=== PATIENT | male | born 1955 | race Caucasian/White ===

== ENCOUNTER 2020-12-18 14:23 | Inpatient (IN) | payer MEDICARE, OTHER ==
[~2020-12-18] VITALS: Ht 175.3 cm; Wt 94.3 kg
[2020-12-18 15:17] LABS: VENOUS BASE EXCESS -15.8 (-2.0-2.0); VENOUS HCO3 9.9 MEQ/L (23.0-27.0); VENOUS O2 SATURATION 88.6 % (60.0-80.0); VENOUS PARTIAL PRESSURE CO2 24.7 mmHg (38.0-50.0); VENOUS PARTIAL PRESSURE O2 61.8 mmHg (30.0-50.0); VENOUS PH 7.222 UNITS (7.330-7.430); VENOUS STANDARD HCO3 12.6 MEQ/L; VENOUS TOTAL CO2 10.7 MEQ/L (24.0-28.0)
[2020-12-18 15:18] LABS: HEMATOCRIT 44.4 % (42.0-52.0); HEMOGLOBIN 14.9 g/dl (13.5-17.5); MEAN CORPUSCULAR HEMOGLOBIN 32.3 pg (27.0-33.0); MEAN CORPUSCULAR HGB CONC 33.6 g/dl (32.0-36.5); MEAN CORPUSCULAR VOLUME 96.1 fl (80.0-96.0); PLATELET COUNT, AUTOMATED 212 10^3/uL (150-450); RED BLOOD COUNT 4.62 10^6/uL (4.30-6.10)
[2020-12-18 15:47] LABS: HEMOGLOBIN A1c 13.3 %
[2020-12-18 15:48] LABS: WHITE BLOOD COUNT 16.3 10^3/uL (4.0-10.0)
[2020-12-18 15:55] LABS: LYMPHOCYTES 4 % (16-44); METAMYELOCYTES 1 % (0-0); MYELOCYTES 1 % (0-0)
[2020-12-18 15:56] LABS: MONOCYTES 7 % (0-5); NEUTROPHILS 56 % (28-66); PLATELET ESTIMATE NORMAL (NORMAL)
[2020-12-18] MEDS ORDERED: HumuLIN R (REGULAR) INSULIN (NovoLIN R) **100U/ML** PER UNIT IV ONE ×2 (16:00→17:40)
[2020-12-18 16:40] LABS: OSMOLALITY SERUM 333 MOSM/KG (280-301)
--- NOTE | 2020-12-18 16:54 | REP ---
INDICATION: fall COMPARISON: None. TECHNIQUE: Portable AP view of the chest FINDINGS: Examination is limited by portable technique, underpenetration, and poor inspiratory effort. Chronic changes are suggested and trace basilar atelectasis cannot be excluded. No discrete consolidation/contusion, effusion, or pneumothorax. Cardiac silhouette is grossly normal for portable technique. Skeletal structures appear intact. IMPRESSION: Limited portable examination. Presumed chronic changes. Cannot exclude trace basilar atelectasis. <Electronically signed by Thaddeus Olsen > 12/18/20 [id number]
[2020-12-18] MEDS ORDERED: NS 1,000 ML IV ONE ×2 (17:15→18:25)
[2020-12-18 17:23] LABS: ACETONE/KETONE > 46.00 MG/DL (<2.81); ALBUMIN 2.5 GM/DL (3.2-5.2); ALT/SGPT 25 U/L (12-78); BILIRUBIN,DIRECT 0.2 MG/DL (0.0-0.2); BILIRUBIN,TOTAL 0.5 MG/DL (0.2-1.0); BLOOD UREA NITROGEN 72 MG/DL (7-18); CALCIUM LEVEL 9.9 MG/DL (8.8-10.2); CARBON DIOXIDE LEVEL 12 MEQ/L (21-32); CHLORIDE LEVEL 87 MEQ/L (98-107); CREATININE FOR GFR 3.58 MG/DL (0.70-1.30); GLOMERULAR FILTRATION RATE 18.2 (>49); GLUCOSE, FASTING 611 MG/DL (70-100); LIPASE 3610 U/L (73-393); SODIUM LEVEL 123 MEQ/L (136-145); TOTAL PROTEIN 7.3 GM/DL (6.4-8.2)
--- NOTE | 2020-12-18 17:47 | REPVR ---
PROCEDURE INFORMATION: Exam: CT Head Without Contrast Exam date and time: 12/18/2020 5:02 PM Age: 65 years old Clinical indication: Injury or trauma; Fall; Blunt trauma (contusions or hematomas) TECHNIQUE: Imaging protocol: Computed tomography of the head without contrast. Radiation optimization: All CT scans at this facility use at least one of these dose optimization techniques: automated exposure control; mA and/or kV adjustment per patient size (includes targeted exams where dose is matched to clinical indication); or iterative reconstruction. COMPARISON: No relevant prior studies available. FINDINGS: Brain: No acute intracranial hemorrhage is visualized. The white-giraldo differentiation is preserved demonstrating no acute territorial type infarct. There is no midline shift. A preston cisterna magna variant is visualized. Mild cerebellar atrophy. Artifact limits evaluation of the catrachita. Cerebral ventricles: There is mild prominence of the ventricles and sulci, compatible with atrophy. Paranasal sinuses: Mucosal thickening of the right sphenoid sinus. Mastoid air cells: No mastoid effusion. Orbital cavity: Bilateral orbital lens implants. Vasculature: Intracranial atherosclerosis visualized. Bones/joints: The parietal skull extends out of the field of view of this study of the vertex of the head. The remaining skull is intact. Soft tissues: The scalp at the anterior vertex of the head extends out of the field of view of this study. No significant swelling involving the remaining scalp. IMPRESSION: 1. No acute intracranial hemorrhage or acute territorial type infarct. 2. Mild atrophy. 3. Additional findings described above. Electronically signed by: Adi Carvalho On 12/18/2020 17:46:45 PM
--- NOTE | 2020-12-18 17:53 | REPVR ---
PROCEDURE INFORMATION: Exam: CT Cervical Spine Without Contrast Exam date and time: 12/18/2020 5:02 PM Age: 65 years old Clinical indication: Injury or trauma; Fall; Blunt trauma TECHNIQUE: Imaging protocol: Computed tomography images of the cervical spine without contrast. Radiation optimization: All CT scans at this facility use at least one of these dose optimization techniques: automated exposure control; mA and/or kV adjustment per patient size (includes targeted exams where dose is matched to clinical indication); or iterative reconstruction. COMPARISON: CR Chest, 1 view 12/18/2020 4:32 PM FINDINGS: Bones/joints: Motion artifact limits evaluation of the cervical spine for fracture. No abnormal subluxation of the cervical vertebral bodies. The facet alignment is preserved bilaterally. The cervical lordosis is straightened. Hypertrophic degenerative changes are identified at the junction of the anterior C1 arch and dens process. Hyperostosis is identified anteriorly at the level of the mid to lower cervical spine. Discs/Spinal canal/Neural foramina: Degenerative changes are visualized at multiple cervical levels. Facet arthropathy is identified at multiple cervical levels. There is a decrease in disc height from C4-C5 through C6-C7. Lungs: No pneumothorax, as visualized. Vasculature: Atherosclerotic changes. Soft tissues: No significant prevertebral soft tissue swelling. IMPRESSION: 1. Motion artifact limits evaluation of the cervical spine for fracture. A repeat cervical spine CT is recommended. 2. The cervical lordosis is straightened. 3. Degenerative changes are visualized at multiple cervical levels. Electronically signed by: Adi Carvalho On 12/18/2020 17:52:59 PM
--- NOTE | 2020-12-18 17:58 | REPVR ---
PROCEDURE INFORMATION: Exam: CT Abdomen And Pelvis Without Contrast Exam date and time: 12/18/2020 5:02 PM Age: 65 years old Clinical indication: Injury or trauma; Fall; Blunt; Generalized TECHNIQUE: Imaging protocol: Computed tomography of the abdomen and pelvis without contrast. Radiation optimization: All CT scans at this facility use at least one of these dose optimization techniques: automated exposure control; mA and/or kV adjustment per patient size (includes targeted exams where dose is matched to clinical indication); or iterative reconstruction. COMPARISON: CR Chest, 1 view 12/18/2020 4:32 PM FINDINGS: Lungs: A lateral 18.5 x 7.9 mm noncalcified pulmonary nodule is noted in the lateral basilar segment of the right lower lobe (LOC -117.82). Liver: Normal. No mass. Gallbladder and bile ducts: Normal. No calcified stones. No ductal dilation. Pancreas: Severe pancreatic atrophy. Spleen: Normal. No splenomegaly. Adrenal glands: Normal. No mass. Kidneys and ureters: Right renal 12.2 mm probable benign cyst. Stomach and bowel: Unremarkable. No obstruction. No mucosal thickening. Appendix: No evidence of appendicitis. Intraperitoneal space: Unremarkable. No free air. No significant fluid collection. Vasculature: Moderate aortic atherosclerotic calcification without aneurysm. The iliac arteries show moderate bilateral atherosclerotic calcifications without evidence of aneurysm. Atherosclerotic calcifications are present involving the LAD coronary artery. Lymph nodes: No enlarged lymph nodes. Urinary bladder: Unremarkable as visualized. Reproductive: Unremarkable as visualized. Bones/joints: No pelvic or sacral fracture identified. No acute lumbar spine fracture identified. T10-11 disc calcification without displacement. Soft tissues: Unremarkable. Other findings: Streak artifact is present from the patient's arms at the side. IMPRESSION: 1. Lack of IV contrast reduces sensitivity to abdominal solid visceral organ traumatic injury. IV contrast enhanced imaging may add additional useful information if not contraindicated. 2. No acute injury identified, as visualized. 3. Right renal probable benign cyst. No follow-up imaging is recommended. 4. Noncalcified right lower lobe pulmonary nodule. Pulmonary neoplasia not excluded. Comparison with prior studies, if available, recommended. Three-month followup chest CT, PET/CT, or percutaneous needle biopsy recommended. (Babita et al., Fleischner Society, 2017). 5. Coronary atherosclerosis. COMMENTS: Consistent with the [employer]'s Incidental Findings Committee white paper (J Am Luis Radiol 2018): Any incidental renal lesion less than 1 cm or classified as too small to characterize, or any incidental cystic renal lesion characterized as simple-appearing, is likely benign. No follow-up imaging is recommended for these lesions per consensus recommendations based on imaging criteria. Electronically signed by: Dexter Baca On 12/18/2020 17:58:38 PM
[2020-12-18 18:36] LABS: RSV AMPLIFICATION NEGATIVE (NEGATIVE)
[2020-12-18] MEDS ORDERED: LORazepam 2 MG TAB PO PRN (18:40)
[2020-12-18] MEDS ORDERED: KCL 20MEQ in NS 1000ML 1,000 ML IV SCH (18:50)
[2020-12-18 19:12] LABS: TROPONIN I < 0.02 NG/ML (< 0.10)
--- NOTE | 2020-12-18 19:24 | ECGEPIP ---
[facility] - ED Test Date: 2020-12-18 Pat Name: ADRIAN US Department: Room: - Gender: Male Microbiological Laboratory Technician: YELITZA : 1955 Requested By: MAR Taylor Order Number: [id number] Reading MD: Zahra Solis Measurements Intervals [place] Rate: 101 P: 42 ME: 160 QRS: 37 QRSD: 82 T: 58 QT: 312 QTc: 404 Interpretive Statements Sinus tachycardia Possible Left atrial enlargement Anterior infarct , age undetermined Nonspecific ST T wave changes No prior ECG for comparison Electronically Signed on 12-18-2020 19:23:44 EDT by Zahra Solis
[2020-12-18] MEDS: INSULIN REGULAR IN 0.9 % NACL 100 UNIT in IV 1 EA IV SCH ×2 (19:25)
[2020-12-18 19:33] LABS: CALCIUM LEVEL 9.9 MG/DL (8.8-10.2); CREATININE FOR GFR 3.56 MG/DL (0.70-1.30); GLOMERULAR FILTRATION RATE 18.3 (>49); POTASSIUM SERUM 4.2 MEQ/L (3.5-5.1)
[2020-12-18 19:35] LABS: CHOLESTEROL RISK RATIO 7.5 (<5)
--- NOTE | 2020-12-18 19:36 | HPEPDOC ---
General Date of Admission Dec 18, 2020 at 18:21 Date of Service: Dec 18, 2020 Chief Complaint The patient is a 65-year-old male admitted with a reason for visit of Acute Renal Failure, Dka Type 2, Pancreatitis. Source: Patient, Family History of Present Illness Mr. Moore is a 65 year old male with DM type 2, hypertension, and hyperlipidemia who is here for weakness and abdominal pain. He ran out of his medications about 2 months ago and did not want to call his primary to refill his medications. He tells me he was afraid of the COVID19. He is from [place] and is currently visiting family here. In the past 6 days, he has been acting more confused and have been having multiple falls. Whenever he falls, his picks him up. This morning, he fell and his could not pick him up. He was brought to the ED. When in the ED, he was found to have DKA with ketones >46, venous pH 7.22, and glucose of 611 with a gap of 24. In addition, he was found to have pancreatitis with a lipase of 3610. was present in the room and provided most of this history. Patient denies any fever/chills, chest pain, dyspnea, or diarrhea. Patient does have nausea, anorexia, and abdominal pain with tenderness. Patient will be admitted for DKA, pancreatitis, GINA, and metabolic encephalopathy. Home Medications No Active Prescriptions or Reported Meds Allergies Coded Allergies: [place] Nut (Verified Allergy, Unknown, THROAT TIGHTENING, 12/18/20) shrimp (Verified Allergy, Unknown, HIVES, 12/18/20) Past Medical History Medical History 1. DM type 2 2. Hypertension 3. Hyperlipidemia 4. Tick bite (Not lyme but a different tick borne disease) Surgical History 1. Finger surgery 2. Arm surgery (known which arm or what procedure) Family History Father: ALS and Brain cancer Mother: Heart disease Social History * Smoker: former Smoker (Quit 6 years ago) Alcohol: other (2 to 3 beers a night) Drugs: denies A-FIB/CHADSVASC A-FIB History Current/History of A-Fib/PAF?: No Review of Systems Constitutional: Denies: Chills, Fever Eyes: Denies: Vision change ENT: Reports: Other Symptoms (Dry throat) Skin: Denies: Rash Pulmonary: Denies: Dyspnea Cardiovascular: Denies: Chest Pain Gastrointestinal: Reports: Abdominal Pain, Constipation Genitourinary: Denies: Dysuria Hematologic: Reports: Bruising Neurological: Denies: Numbness Psych: Denies: Anxiety, Depression Physical Examination General Exam: Positive: Mild Distress Eye Exam: Positive: EOMI; Negative: Sclera icteric ENT Exam: Positive: Other ENT (Dry mouth) Neck Exam: Negative: JVD Chest Exam: Positive: Clear to auscultation; Negative: Rales, Rhonchi, Wheezing Heart Exam: Positive: Tachycardic, Regular Rhythm Abdomen Exam: Positive: Normal bowel sounds, Tenderness Extremity Exam: Negative: Edema Psych Exam: Positive: Other (confused) Vital Signs Vital Signs Date Time Temp Pulse Resp B/P (MAP) Pulse Ox O2 Delivery O2 Flow Rate FiO2 12/18/20 16:31 104 29 115/58 (77) Room Air 12/18/20 16:26 99.4 12/18/20 14:45 95 Laboratory Data Labs 24H Laboratory Tests 2 12/18/20 14:51: Neutrophils (%) (Auto) , Nucleated Red Blood Cells % (auto) 0.0, Neutrophils 56, Band Neutrophils 31H, Lymphocytes (Manual) 4L, Monocytes (Manual) 7H, Metamyelocytes 1H, Myelocytes 1H, Platelet Estimate NORMAL, Blood Gas Bicarbonate Standard 12.6, Venous Blood pH 7.222L, Venous Blood Partial Pressure CO2 24.7L, Venous Blood Partial Pressure O2 61.8H, Venous Blood Total Carbon Dioxide 10.7L, Venous Blood HCO3 9.9L, Venous Blood Oxygen Saturation 88.6H, Venous Blood Base Excess -15.8L, Estimated Mean Plasma Glucose 335H, Hemoglobin A1c 13.3, Lactic Acid Level 1.7 12/18/20 15:42: Bedside Glucose (Misc Panel) 572*H 12/18/20 16:04: Anion Gap 24H, Glomerular Filtration Rate 18.2L, Osmolality 333H, Calcium Level 9.9, Total Bilirubin 0.5, Direct Bilirubin 0.2, Aspartate Amino Transf (AST/SGOT) 23, Alanine Aminotransferase (ALT/SGPT) 25, Alkaline Phosphatase 136H, C-Reactive Protein, Quantitative 34.50H, Total Protein 7.3, Albumin 2.5L, Albumin/Globulin Ratio 0.5, Lipase 3610H, B-Hydroxybutyrate > 46.00H 12/18/20 17:37: Coronavirus (COVID-19)(PCR) NEGATIVE, Influenza Type A (RT-PCR) NEGATIVE, Influenza Type B (RT-PCR) NEGATIVE, Respiratory Syncytial Virus (PCR) NEGATIVE 12/18/20 18:03: Bedside Glucose (Misc Panel) 509*H 12/18/20 18:50: CBC/BMP Laboratory Tests 12/18/20 14:51 12/18/20 16:04 Microbiology Microbiology 12/18/20 Blood Culture, Received Pending 12/18/20 Blood Culture, Received Pending Assessment/Plan Mr. Moore is a 65 year old male with DM type 2, hypertension, and hyperlipidemi a who is here for weakness and abdominal pain and found to have DKA, pancreatitis, GINA, and metabolic encephalopathy. DKA most likely from medication non-compliance. Patient does drink alcohol which may have caused pancreatitis. Will check lipid profile for hypertriglyceridemia as a cause of pancreatitis. CT abd/pelvis did not demonstrate gallstones and AST and ALT within normal. Plan / VTE VTE Prophylaxis Ordered?: Yes Plan Plan 1. DKA -Ketones >46, venous pH 7.22, and glucose of 611 with a gap of 24 -NPO -IVF with potassium -Insulin drip -Frequent BMP checks and q1h FSBS 2. Pancreatitis -Lipase 3610 -Abdominal pain and tenderness -Check lipid panel for hypertriglyceridemia -NPO and IVF 3. Acute renal failure -Creatinine elevated at 3.58 -Patient is dehydrated. Most likely prerenal -IVF 4. Leukocytosis -Possibly reactive vs infection -CXR negative for pneumonia -Ordered for UA -Meropenem empirically 5. Metabolic encephalopathy -Patient is confused, most likely from DKA -Patient does drink alcohol. CIWA ordered -IV Thiamine 6. DVT ppx -SCD and TEDs Disposition: Pending clinical improvement JARVIS RICE DO Dec 18, 2020 19:36
[2020-12-18] MEDS: INSULIN IV RATE CHANGE DOCUMENTATION ML/HR XX SCH ×5 (20:06→23:04)
[2020-12-18] MEDS: MEROPENEM INJ 1 GM in IV 1 EA IV SCH (20:08)
[2020-12-18 20:54] LABS: CALCIUM LEVEL 9.9 MG/DL (8.8-10.2); CREATININE FOR GFR 3.53 MG/DL (0.70-1.30); GLOMERULAR FILTRATION RATE 18.5 (>49); POTASSIUM SERUM 3.9 MEQ/L (3.5-5.1)
[2020-12-18 21:00] VITALS: BP 143/67
[2020-12-18] MEDS: FOLIC ACID 1 MG in NS 50 ML IV SCH (21:15)
[2020-12-18] MEDS: THIAMINE 200MG/2ML VIAL (J3411 PER 100MG) IV SCH (21:51)
[2020-12-18 22:00] VITALS: BP 133/84
[2020-12-19] VITALS (33 sets, daily range): BP systolic 84–137; BP diastolic 45–78
[2020-12-19] MEDS: KCL 20MEQ IN D5/0.45NS 1000ML 1,000 ML IV SCH ×7 (00:06→20:17)
[2020-12-19] MEDS: INSULIN IV RATE CHANGE DOCUMENTATION ML/HR XX SCH ×10 (01:05→19:09)
[2020-12-19 03:01] LABS: CALCIUM LEVEL 9.1 MG/DL (8.8-10.2); CREATININE FOR GFR 3.23 MG/DL (0.70-1.30); GLOMERULAR FILTRATION RATE 20.5 (>49); POTASSIUM SERUM 4.3 MEQ/L (3.5-5.1)
[2020-12-19] MEDS ORDERED: MORPHINE 4 MG/ML 1ML VIAL/SYRINGE (J2270) IV ONE (03:35)
[2020-12-19] MEDS: HYDROMORPHONE HCL 0.5 MG/ 0.5 ML SYRINGE (J1170 PER 1) IV PRN ×3 (04:59→22:48)
[2020-12-19 06:37] LABS: HEMATOCRIT 36.3 % (42.0-52.0); MEAN CORPUSCULAR HEMOGLOBIN 32.6 pg (27.0-33.0); MEAN CORPUSCULAR HGB CONC 34.4 g/dl (32.0-36.5); MEAN CORPUSCULAR VOLUME 94.5 fl (80.0-96.0); PLATELET COUNT, AUTOMATED 179 10^3/uL (150-450); RED BLOOD COUNT 3.84 10^6/uL (4.30-6.10); WHITE BLOOD COUNT 9.8 10^3/uL (4.0-10.0)
[2020-12-19 06:43] LABS: HEMOGLOBIN 12.5 g/dl (13.5-17.5)
[2020-12-19 06:59] LABS: CREATININE FOR GFR 3.41 MG/DL (0.70-1.30); GLOMERULAR FILTRATION RATE 19.3 (>49); POTASSIUM SERUM 4.3 MEQ/L (3.5-5.1)
[2020-12-19] MEDS: MEROPENEM INJ 1 GM in IV 1 EA IV SCH ×2 (08:21→20:15)
[2020-12-19] MEDS: INSULIN REGULAR IN 0.9 % NACL 100 UNIT in IV 1 EA IV SCH ×4 (08:27→22:50)
[2020-12-19 08:47] LABS: ABG BASE EXCESS -5.3 (-2.0-2.0); ABG HCO3 19.2 MEQ/L (22.0-26.0); ABG O2 SATURATION 95.4 % (95.0-99.0); ABG PARTIAL PRESSURE CO2 34.3 mmHg (35.0-45.0); ABG PARTIAL PRESSURE O2 78.7 mmHg (75.0-100.0); ABG STANDARD HCO3 20.1 MEQ/L (22.0-26.0); ABG TOTAL CO2 20.3 MEQ/L (23.0-31.0); ABG pH (ARTERIAL) 7.366 UNITS (7.350-7.450)
[2020-12-19] MEDS ORDERED: VANCOMYCIN INTERMITTENT/PULSE DOSING BY CLINICAL PHARMACIST PER DOSING PROTOCOL XX SCH (09:20)
[2020-12-19 09:43] LABS: CALCIUM LEVEL 8.9 MG/DL (8.8-10.2); CREATININE FOR GFR 3.44 MG/DL (0.70-1.30); GLOMERULAR FILTRATION RATE 19.1 (>49); POTASSIUM SERUM 4.5 MEQ/L (3.5-5.1)
[2020-12-19] MEDS ORDERED: VANCOMYCIN HCL 1,000 MG, VIAL MATE ADAPTER 1 EACH in NS 250 ML IV ONE ×2 (10:00→13:00)
[2020-12-19] MEDS ORDERED: IPRATROPIUM 0.5MG/ALBUTEROL 2.5MG INH SOL UD 3ML (DUONEB) NEB PRN (10:55)
--- NOTE | 2020-12-19 12:35 | REP ---
INDICATION: AMS COMPARISON: 12/18/2020 TECHNIQUE: Axial noncontrast images from the skull base to the thoracic inlet with coronal reformations. This CT examination was performed using the following dose reduction techniques: Automated exposure control, adjustment of mA and/or kv according to the patient's size, and use of iterative reconstruction technique. FINDINGS: Atrophy with periventricular leukomalacia and microvascular ischemic changes are appreciated. The ventricles and sulci are symmetric. Lockhart-white differentiation is maintained. There is no evidence for acute intracranial hemorrhage, mass/mass effect, pathology or infarction. No extra-axial fluid collection. Calvarium is intact. Paranasal sinuses and mastoid air cells are clear. IMPRESSION: Stable age-related changes. No acute intracranial hemorrhage, infarction, or mass/mass effect. <Electronically signed by Thaddeus Olsen > 12/19/20 [id number]
--- NOTE | 2020-12-19 17:11 | IPNPDOC ---
Subjective Date Seen The patient was seen on 12/19/20. Subjective Chief Complaint/HPI Mr. Moore is a 65 year old male with DM type 2, hypertension, and hyperlipidemia who is here for weakness and abdominal pain and found to have DKA and acute pancreatitis. Overnight, he became more somnolent, but responsive to pain. Otherwise, blood cultures x2 returned positive for gram positive cocci in clusters. Patient was started on Vancomycin. MRSA swab positive. Nurse notified me about erythema of patient's right ARM. Last night, it was outlined and now has receded down to the right elbow. Right elbow erythematous and warm. Will order soft tissue imaging of right elbow Objective Physical Examination General Exam: Positive: Mild Distress Eye Exam: Positive: EOMI; Negative: Sclera icteric ENT Exam: Positive: Other ENT (Dry mouth) Neck Exam: Negative: JVD Chest Exam: Positive: Clear to auscultation; Negative: Rales, Rhonchi, Wheezing Heart Exam: Positive: Tachycardic, Regular Rhythm Abdomen Exam: Positive: Normal bowel sounds, Tenderness Extremity Exam: Negative: Edema Psych Exam: Positive: Other (confused) Assessment /Plan Assessment Mr. Moore is a 65 year old male with DM type 2, hypertension, and hyperlipidemia who is here for weakness and abdominal pain and found to have DKA, pancreatitis, GINA, and metabolic encephalopathy. DKA most likely from medication non-compliance. Patient does drink alcohol which may have caused pancreatitis. Will check lipid profile for hypertriglyceridemia as a cause of pancreatitis. CT abd/pelvis did not demonstrate gallstones and AST and ALT within normal. Plan/VTE VTE Prophylaxis Ordered?: Yes Plan 1. DKA -Ketones >46, venous pH 7.22, and glucose of 611 with a gap of 24 -NPO -IVF with potassium -Insulin drip -Frequent BMP checks and q1h FSBS -Resolving, unable to tolerate orals, so will continue with insulin drip and IVF 2. Pancreatitis -Lipase 3610 -Abdominal pain and tenderness -Check lipid panel for hypertriglyceridemia -NPO and IVF -Improving, continue with IVF 3. Acute renal failure -Creatinine elevated at 3.58 -Patient is dehydrated. Most likely prerenal -IVF 4. Leukocytosis -Possibly reactive vs infection -CXR negative for pneumonia -Ordered for UA -Meropenem empirically 5. Metabolic encephalopathy -Patient is confused, most likely from DKA -Patient does drink alcohol. CIWA ordered -IV Thiamine 6. Cellulitis of right arm -Erythematous, swollen, and warm -Receded back to elbow -Will order XR and US to look for effusion -Will also order lyme screen -Continue Meropenem and Vancomycin 7. DVT ppx -SCD and TEDs Disposition: Pending clinical improvement VS, I&O, 24H, Fishbone Vital Signs/I&O Vital Signs Date Time Temp Pulse Resp B/P (MAP) Pulse Ox O2 Delivery O2 Flow Rate FiO2 12/19/20 16:00 112 28 124/60 (81) 91 Nasal Cannula 4.0 12/19/20 11:00 98.6 I&O- Last 24 Hours up to 6 AM 12/19/20 06:00 Intake Total 3626 ml Output Total 629 ml Balance 2997 ml Laboratory Data 24H LABS Laboratory Tests 2 12/18/20 17:37: Coronavirus (COVID-19)(PCR) NEGATIVE, Influenza Type A (RT-PCR) NEGATIVE, Influenza Type B (RT-PCR) NEGATIVE, Respiratory Syncytial Virus (PCR) NEGATIVE 12/18/20 18:03: Bedside Glucose (Misc Panel) 509*H 12/18/20 18:50: Anion Gap 26H, Glomerular Filtration Rate 18.3L, Calcium Level 9.9, Triglycerides Level 233H, Total Cholesterol 195, LDL Cholesterol 122H, Non-HDL Cholesterol (LDL + VLDL) 169, Total HDL Cholesterol 26L, Cholesterol/HDL Ratio 7.500H 12/18/20 19:21: Bedside Glucose (Misc Panel) 421H 12/18/20 20:01: Bedside Glucose (Misc Panel) 382H 12/18/20 20:13: Anion Gap 22H, Glomerular Filtration Rate 18.5L, Calcium Level 9.9 12/18/20 21:06: Bedside Glucose (Misc Panel) 276H 12/18/20 22:03: Bedside Glucose (Misc Panel) 213H 12/18/20 23:02: Bedside Glucose (Misc Panel) 153H 12/18/20 23:58: Bedside Glucose (Misc Panel) 135H 12/19/20 01:04: Bedside Glucose (Misc Panel) 209H 12/19/20 01:59: Bedside Glucose (Misc Panel) 232H 12/19/20 02:24: Anion Gap 17H, Glomerular Filtration Rate 20.5L, Calcium Level 9.1 12/19/20 03:01: Bedside Glucose (Misc Panel) 241H 12/19/20 03:10: Urine Color YELLOW, Urine Appearance CLOUDYH, Urine pH 5.0, Urine Specific [place] 1.014, Urine Protein 2+H, Urine Glucose (UA) 3+H, Urine Ketones 1+H, Urine Blood 3+H, Urine Nitrite NEGATIVE, Urine Bilirubin NEGATIVE, Urine Urobilinogen 0.2, Urine Leukocyte Esterase TRACEH, Urine WBC (Auto) 9H, Urine RBC (Auto) 8H, Urine Hyaline Casts (Auto) 2, Urine Bacteria (Auto) 1+H, Urine Squamous Epithelial Cells 2, Urine Amorphous Sediment SMALLH, Urine Sperm (Auto) 12/19/20 03:57: Bedside Glucose (Misc Panel) 217H 12/19/20 05:02: Bedside Glucose (Misc Panel) 204H 12/19/20 05:58: Bedside Glucose (Misc Panel) 178H 12/19/20 06:24: Nucleated Red Blood Cells % (auto) 0.0, Anion Gap 12, Glomerular Filtration Rate 19.3L, Calcium Level 9.0, Lipase 1172H 12/19/20 06:55: Bedside Glucose (Misc Panel) 221H 12/19/20 07:52: Bedside Glucose (Misc Panel) 218H 12/19/20 08:12: Blood Gas Bicarbonate Standard 20.1L, Arterial Blood pH 7.366, Arterial Blood Partial Pressure CO2 34.3L, Arterial Blood Partial Pressure O2 78.7, Arterial Blood Total CO2 20.3L, Arterial Blood HCO3 19.2L, Arterial Blood Base Excess - 5.3L, Arterial Blood Oxygen Saturation 95.4 12/19/20 08:59: Anion Gap 9, Glomerular Filtration Rate 19.1L, Calcium Level 8.9 12/19/20 09:35: Methicillin-Resist S.aureus DNA PCR DETECTEDA 12/19/20 10:14: Bedside Glucose (Misc Panel) 202H 12/19/20 10:56: Bedside Glucose (Misc Panel) 189H 12/19/20 12:28: Bedside Glucose (Misc Panel) 192H 12/19/20 13:12: Bedside Glucose (Misc Panel) 203H 12/19/20 14:09: Bedside Glucose (Misc Panel) 212H 12/19/20 14:59: Bedside Glucose (Misc Panel) 195H 12/19/20 16:21: Bedside Glucose (Misc Panel) 199H CBC/BMP Laboratory Tests 12/18/20 18:50 12/18/20 20:13 12/19/20 02:24 12/19/20 06:24 12/19/20 08:59 Microbiology Microbiology 12/19/20 Urine Culture, Received Pending 12/18/20 Blood Culture - Preliminary, Resulted 12/18/20 Blood Culture - Preliminary, Resulted JARVIS RICE DO Dec 19, 2020 17:11
[2020-12-19 17:27] LABS: CALCIUM LEVEL 9.2 MG/DL (8.8-10.2); CREATININE FOR GFR 3.35 MG/DL (0.70-1.30); GLOMERULAR FILTRATION RATE 19.7 (>49); POTASSIUM SERUM 4.3 MEQ/L (3.5-5.1)
--- NOTE | 2020-12-19 17:54 | REP ---
INDICATION: Erythema and swelling COMPARISON: None. TECHNIQUE: Single oblique portable view of the right elbow FINDINGS: Soft tissue swelling. Degenerative changes. IMPRESSION: Limited examination demonstrating soft tissue swelling and degenerative changes. <Electronically signed by Thaddeus Olsen > 12/19/20 [id number]
--- NOTE | 2020-12-19 17:57 | REP ---
INDICATION: Right elbow warmth and swelling COMPARISON: None TECHNIQUE: Real time giraldo scale and color B-mode ultrasound examination using linear high-frequency transducer. FINDINGS: Limited ultrasound examination of the right elbow demonstrates subcutaneous edema and small irregular complex fluid collection measuring 2.0 x 0.7 x 2.4 cm which may represent bursitis versus abscess. IMPRESSION: Edema and small complex fluid collection. <Electronically signed by Thaddeus Olsen > 12/19/20 [id number]
[2020-12-19] MEDS: THIAMINE 200MG/2ML VIAL (J3411 PER 100MG) IV SCH (20:17)
[2020-12-19 20:46] LABS: CALCIUM LEVEL 8.4 MG/DL (8.8-10.2); CREATININE FOR GFR 3.36 MG/DL (0.70-1.30); GLOMERULAR FILTRATION RATE 19.6 (>49); POTASSIUM SERUM 4.4 MEQ/L (3.5-5.1)
[2020-12-19] MEDS ORDERED: [UNRECOGNIZED DRUG - REMARK] XX (21:17)
[2020-12-19] MEDS ORDERED: [UNRECOGNIZED DRUG - CODE] IV (21:17)
[2020-12-19] MEDS ORDERED: LORA2TA PO (21:17)
[2020-12-19] MEDS ORDERED: INSURSDRX SC (21:17)
[2020-12-19] MEDS ORDERED: **Note Patient Comment XX (21:17)
[2020-12-19] MEDS ORDERED: MERO1INJ8 IV (21:17)
[2020-12-19] MEDS ORDERED: THIA100I4 IV (21:17)
[2020-12-19] MEDS: FOLIC ACID 1 MG in NS 50 ML IV SCH (21:26)
--- NOTE | 2020-12-19 21:59 | DS.PDOC ---
Discharge Summary General Date of Admission Dec 18, 2020 at 18:21 Date of Discharge Dec 19, 2020 Discharge Summary PROCEDURES PERFORMED DURING STAY: None ADMITTING DIAGNOSES: 1. DKA 2. Pancreatitis 3. Acute renal failure 4. Leukocytosis 5. Metabolic encephalopathy DISCHARGE DIAGNOSES: 1. DKA 2. Pancreatitis 3. Acute renal failure 4. Leukocytosis 5. Metabolic encephalopathy 6. Sepsis 7. Right arm cellulitis 8. Septic arthritis of right elbow COMPLICATIONS/CHIEF COMPLAINT: Acute Renal Failure, Dka Type 2, Pancreatitis. HISTORY OF PRESENT ILLNESS: Mr. Moore is a 65 year old male with DM type 2, hyp ertension, and hyperlipidemia who is here for weakness and abdominal pain. He ran out of his medications about 2 months ago and did not want to call his primary to refill his medications. He tells me he was afraid of the COVID19. He is from [place] and is currently visiting family here. In the past 6 days, he has been acting more confused and have been having multiple falls. Whenever he falls, his picks him up. This morning, he fell and his could not pick him up. He was brought to the ED. When in the ED, he was found to have DKA with ketones >46, venous pH 7.22, and glucose of 611 with a gap of 24. In addition, he was found to have pancreatitis with a lipase of 3610. was present in the room and provided most of this history. Patient denies any fever/chills, chest pain, dyspnea, or diarrhea. Patient does have nausea, anorexia, and abdominal pain with tenderness. Patient will be admitted for DKA, pancreatitis, GINA, and metabolic encephalopathy. HOSPITAL COURSE: Overnight, patient's mentation worsened. He became lethargic. It was noted that he had cellulitis of the right arm and elbow. Blood cultures x2 returned positive for gram positive cocci in clusters. On exam, his elbow was erythematous, swollen, and warm. US of elbow demonstrates a fluid collection there. We do not have orthopedic surgery today or tomorrow and the scheduled for the rest of the week is not up. I called to [facility], [facility], [facility], [facility], [facility], and [facility] and there was not bed availability with appropriate services required. [facility] in [place], [place] has accepted the patient. Accepting physician is Dr. Miramontes and room number will be [id number]. I called and updated Alicia about transfer. Her number is [phone] DISCHARGE MEDICATIONS: Please see below. ALLERGIES: Please see below. PHYSICAL EXAMINATION ON DISCHARGE: VITAL SIGNS: Please see below. GENERAL: Lethargic HEENT: Sclera clear CARDIOVASCULAR EXAMINATION: Tachycardic but regular RESPIRATORY EXAMINATION: Lungs clear to auscultation ABDOMINAL EXAMINATION: Obese, normal bowel sounds EXTREMITIES: No pedal edema NEUROLOGICAL EXAMINATION: Lethargic PSYCHIATRIC EXAMINATION: Confused LABORATORY DATA: Please see below. IMAGING: Please refer to radiology reports PROGNOSIS: Guarded ACTIVITY: As tolerated DIET: NPO DISCHARGE PLAN: Transfer to [facility] in [place], [place] DISPOSITION: Transfer . DISCHARGE INSTRUCTIONS: 1. Continue insulin drip and IVF for DKA and pancreatitis 2. Continue Meropenem and Vancomycin for sepsis 3. Orthopedic surgery consult requested for septic joint DISCHARGE CONDITION: Stable Total time spent on discharge planning, discharge summary, and medication reconciliation: 120 mins Vital Signs/I&Os Vital Signs Date Time Temp Pulse Resp B/P (MAP) Pulse Ox O2 Delivery O2 Flow Rate FiO2 12/19/20 21:30 108 120/56 (77) 95 Nasal Cannula 4.0 12/19/20 20:00 98.8 32 I&O- Last 24 Hours up to 6 AM 12/19/20 06:00 Intake Total 3626 ml Output Total 629 ml Balance 2997 ml Laboratory Data Labs 24H Laboratory Tests 2 12/18/20 22:03: Bedside Glucose (Misc Panel) 213H 12/18/20 23:02: Bedside Glucose (Misc Panel) 153H 12/18/20 23:58: Bedside Glucose (Misc Panel) 135H 12/19/20 01:04: Bedside Glucose (Misc Panel) 209H 12/19/20 01:59: Bedside Glucose (Misc Panel) 232H 12/19/20 02:24: Anion Gap 17H, Glomerular Filtration Rate 20.5L, Calcium Level 9.1 12/19/20 03:01: Bedside Glucose (Misc Panel) 241H 12/19/20 03:10: Urine Color YELLOW, Urine Appearance CLOUDYH, Urine pH 5.0, Urine Specific Center 1.014, Urine Protein 2+H, Urine Glucose (UA) 3+H, Urine Ketones 1+H, U rine Blood 3+H, Urine Nitrite NEGATIVE, Urine Bilirubin NEGATIVE, Urine Urobilinogen 0.2, Urine Leukocyte Esterase TRACEH, Urine WBC (Auto) 9H, Urine RBC (Auto) 8H, Urine Hyaline Casts (Auto) 2, Urine Bacteria (Auto) 1+H, Urine Squamous Epithelial Cells 2, Urine Amorphous Sediment SMALLH, Urine Sperm (Auto) 12/19/20 03:57: Bedside Glucose (Misc Panel) 217H 12/19/20 05:02: Bedside Glucose (Misc Panel) 204H 12/19/20 05:58: Bedside Glucose (Misc Panel) 178H 12/19/20 06:24: Nucleated Red Blood Cells % (auto) 0.0, Anion Gap 12, Glomerular Filtration Rate 19.3L, Calcium Level 9.0, Lipase 1172H 12/19/20 06:55: Bedside Glucose (Misc Panel) 221H 12/19/20 07:52: Bedside Glucose (Misc Panel) 218H 12/19/20 08:12: Blood Gas Bicarbonate Standard 20.1L, Arterial Blood pH 7.366, Arterial Blood Partial Pressure CO2 34.3L, Arterial Blood Partial Pressure O2 78.7, Arterial Blood Total CO2 20.3L, Arterial Blood HCO3 19.2L, Arterial Blood Base Excess - 5.3L, Arterial Blood Oxygen Saturation 95.4 12/19/20 08:59: Anion Gap 9, Glomerular Filtration Rate 19.1L, Calcium Level 8.9 12/19/20 09:35: Methicillin-Resist S.aureus DNA PCR DETECTEDA 12/19/20 10:14: Bedside Glucose (Misc Panel) 202H 12/19/20 10:56: Bedside Glucose (Misc Panel) 189H 12/19/20 12:28: Bedside Glucose (Misc Panel) 192H 12/19/20 13:12: Bedside Glucose (Misc Panel) 203H 12/19/20 14:09: Bedside Glucose (Misc Panel) 212H 12/19/20 14:59: Bedside Glucose (Misc Panel) 195H 12/19/20 16:21: Bedside Glucose (Misc Panel) 199H 12/19/20 16:48: Anion Gap 8, Glomerular Filtration Rate 19.7L, Calcium Level 9.2 12/19/20 17:13: Bedside Glucose (Misc Panel) 210H 12/19/20 18:09: Bedside Glucose (Misc Panel) 187H 12/19/20 19:07: Bedside Glucose (Misc Panel) 213H 12/19/20 20:12: Bedside Glucose (Misc Panel) 233H, Anion Gap 8, Glomerular Filtration Rate 19.6L, Calcium Level 8.4L 12/19/20 21:23: Bedside Glucose (Misc Panel) 245H CBC/BMP Laboratory Tests 12/19/20 02:24 12/19/20 06:24 12/19/20 08:59 12/19/20 16:48 12/19/20 20:12 FSBS Laboratory Tests Test 12/18/20 22:03 12/18/20 23:02 12/18/20 23:58 12/19/20 01:04 Range/Units Bedside Glucose (Misc Panel) 213 153 135 209 80-115 MG/DL Test 12/19/20 01:59 12/19/20 03:01 12/19/20 03:57 12/19/20 05:02 Range/Units Bedside Glucose (Misc Panel) 232 241 217 204 80-115 MG/DL Test 12/19/20 05:58 12/19/20 06:55 12/19/20 07:52 12/19/20 10:14 Range/Units Bedside Glucose (Misc Panel) 178 221 218 202 80-115 MG/DL Test 12/19/20 10:56 12/19/20 12:28 12/19/20 13:12 12/19/20 14:09 Range/Units Bedside Glucose (Misc Panel) 189 192 203 212 80-115 MG/DL Test 12/19/20 14:59 12/19/20 16:21 12/19/20 17:13 12/19/20 18:09 Range/Units Bedside Glucose (Misc Panel) 195 199 210 187 80-115 MG/DL Test 12/19/20 19:07 12/19/20 20:12 12/19/20 21:23 Range/Units Bedside Glucose (Misc Panel) 213 233 245 80-115 MG/DL Microbiology Microbiology 12/19/20 Urine Culture, Received Pending 12/18/20 Blood Culture - Preliminary, Resulted 12/18/20 Blood Culture - Preliminary, Resulted Discharge Medications Scheduled Insulin Human Regular (Humulin R) 100 Unit/1 Ml Vial, 1 UNITS SC Q24H Meropenem (Meropenem-0.9% NaCl 1 Gram/50) 1 Gm/50 Ml Piggyback, 1 INJ IV Q12H Potassium Chloride/D5-0.45NACL (KCl 20 Meq in D5w-0.45% NaCl) 20 Meq/1000 Ml Iv.soln, 1,000 ML IV Q24H Thiamine HCl (Thiamine HCl) 100 Mg/1 Ml Vial, 100 MG IV DAILY@2100 [Note Patient Comment] MISC, 0 XX ASDIRECTED [Insulin Iv Rate Change Documen] MISC, 0 XX ASDIRECTED Scheduled PRN Lorazepam (Lorazepam) 2 Mg Tablet, 2 MG PO ASDIRECTED PRN for SEE PROTOCOL Allergies Coded Allergies: [place] Nut (Verified Allergy, Unknown, THROAT TIGHTENING, 12/18/20) shrimp (Verified Allergy, Unknown, HIVES, 12/18/20) JARVIS RICE DO Dec 19, 2020 21:59
[2020-12-21 17:07] LABS: Lyme Disease IgG/IgM Antibodie <0.91 ISR (0.00-0.90); Lyme Disease IgM Ab Quantitati <0.80 index (0.00-0.79)
== END 2020-12-19 23:11 | disposition short-term general hospital (02) | DRG 871 ==
LOC: M ED 14:23 → EDBD 14:23 → M ED INP 18:21 → EEVIPCON 18:21 → ENRESERV 20:11 → M ICU 20:44
PROVIDERS: ADMIT Internal Medicine; ATTEND Internal Medicine
DX: A41.9 Sepsis, unspecified organism (principal); G93.41 Metabolic encephalopathy; K85.90 Acute pancreatitis without necrosis or infection, unspecified; E11.10 Type 2 diabetes mellitus with ketoacidosis without coma; N17.9 Acute kidney failure, unspecified; M00.821 Arthritis due to other bacteria, right elbow; L03.113 Cellulitis of right upper limb; Z91.14 Patient's other noncompliance with medication regimen; I10 Essential (primary) hypertension; E78.5 Hyperlipidemia, unspecified; Z91.013 Allergy to seafood; Z79.899 Other long term (current) drug therapy; Z79.4 Long term (current) use of insulin; Z91.010 Allergy to peanuts